=== PATIENT | male | born 1940 | race Caucasian/White ===

== ENCOUNTER → 2016-10-04 | Outpatient (CLI) | payer MEDICARE, BC ==
[~2016-10-04] MED LIST: EXCETAB2 PO; GABA100C4 PO; GABA300C5 PO; HYDR-3580 PO; HYDR10TA65 PO; LYRI50CA; MULT1TAB85 PO; POLY10O LEFT EYE; PROZ20CA11 PO; TRAZ50TA12 PO
[2016-10-04 12:56] LABS: BLOOD, URINE NEG (NEG); GLUCOSE,URINE NEG (NEG); KETONE, URINE NEG (NEG); MUCUS URINE MOD /lpf (OCC); NITRITE,URINE NEG (NEG); SQUAMOUS EPITHELIAL CELL URINE <1 /hpf (0-5); URINE COLOR YELLOW (YELLW/STRAW)
[2016-10-04 12:57] LABS: AUTOMATED NEUTROPHIL # 6.1 TH/MM3 (1.8-7.7); BASOPHIL # 0.1 TH/MM3 (0-0.2); BASOPHIL % 0.9 % (0.0-2.0); EOSINOPHIL # 0.3 TH/MM3 (0-0.4); EOSINOPHIL % 3.5 % (0.0-4.0); HEMATOCRIT 35.4 % (39.0-51.0); LYMPH % 9.6 % (9.0-44.0); LYMPHOCYTE # 0.8 TH/MM3 (1.0-4.8); MEAN CELL VOLUME 73.9 FL (80.0-100.0); MEAN CORPUSCULAR HEMOGLOBIN 24.3 PG (27.0-34.0); MEAN CORPUSCULAR HGB CONC 32.9 % (32.0-36.0); MONO % 11.9 % (0.0-8.0); NEUT % 74.1 % (16.0-70.0); PLATELET COUNT 138 TH/MM3 (150-450); RED BLOOD COUNT 4.78 MIL/MM3 (4.50-5.90); RED CELL DISTRIBUTION WIDTH 16.4 % (11.6-17.2); WHITE BLOOD COUNT 8.3 TH/MM3 (4.0-11.0)
[2016-10-04 13:00] LABS: HEMO FLAGS AUTO DIFF
[2016-10-04 13:38] LABS: ANION GAP 6 MEQ/L (5-15); AST (GOT) 15 U/L (15-37); BICARBONATE 28.9 MEQ/L (21.0-32.0); BLOOD UREA NITROGEN 13 MG/DL (7-18); CHLORIDE 105 MEQ/L (98-107); GLOMERULAR FILTRATION RATE 73 ML/MIN (>89); POTASSIUM 3.9 MEQ/L (3.5-5.1); SODIUM (NA) 140 MEQ/L (136-145)
[2016-10-04 13:49] LABS: ALKALINE PHOSPHATASE 57 U/L (45-117); ALT (GPT) 14 U/L (12-78); TOTAL BILIRUBIN ADULT 0.6 MG/DL (0.2-1.0)
[2016-10-04 14:15] LABS: OVALOCYTES 1+ (NORMAL)
[2016-10-04 14:16] LABS: SCAN/DIFF AUTO DIFF CONFIRMED
== END ==
LOC: PLAB 10:48
PROVIDERS: ATTEND Internal Medicine Endocrinology, Diabetes & Metabolism
DX: E27.40 Unspecified adrenocortical insufficiency (principal); E78.5 Hyperlipidemia, unspecified
CPT/HCPCS: 36415; 80053; 81001; 84443; 85025

== ENCOUNTER → 2016-10-11 | Outpatient (CLI) | payer MEDICARE, BC ==
[2016-10-11 16:04] LABS: AUTOMATED NEUTROPHIL # 5.1 TH/MM3 (1.8-7.7); BASOPHIL % 0.5 % (0.0-2.0); EOSINOPHIL # 0.1 TH/MM3 (0-0.4); LYMPH % 18.9 % (9.0-44.0); LYMPHOCYTE # 1.3 TH/MM3 (1.0-4.8); MEAN CELL VOLUME 73.9 FL (80.0-100.0); MEAN CORPUSCULAR HEMOGLOBIN 24.2 PG (27.0-34.0); MEAN CORPUSCULAR HGB CONC 32.8 % (32.0-36.0); NEUT % 72.6 % (16.0-70.0); PLATELET COUNT 159 TH/MM3 (150-450); RED BLOOD COUNT 4.87 MIL/MM3 (4.50-5.90); RED CELL DISTRIBUTION WIDTH 16.8 % (11.6-17.2)
[2016-10-11 16:06] LABS: HEMO FLAGS AUTO DIFF
[2016-10-11 16:46] LABS: FERRITIN 21 NG/ML (26-388); TRANSFERRIN IRON PROFILE 307 MG/DL (200-360)
[2016-10-11 17:37] LABS: PLATELET ESTIMATE SMEAR NORMAL (NORMAL); PLATELET MORPHOLOGY NORMAL (NORMAL); SCAN/DIFF AUTO DIFF CONFIRMED
== END ==
LOC: PLAB 13:35
DX: D64.9 Anemia, unspecified (principal)
CPT/HCPCS: 36415; 82607; 82728; 82746; 83540; 83550; 85025

== ENCOUNTER → 2016-10-27 | Outpatient (CLI) | payer MEDICARE, BC ==
[2016-10-27 14:12] LABS: FERRITIN 13 NG/ML (26-388); TRANSFERRIN IRON PROFILE 313 MG/DL (200-360)
== END ==
LOC: PLAB 09:35
PROVIDERS: ATTEND Internal Medicine Gastroenterology
DX: D64.9 Anemia, unspecified (principal); Z80.0 Family history of malignant neoplasm of digestive organs
CPT/HCPCS: 36415; 82607; 82728; 83540; 83550

== ENCOUNTER 2016-11-13 12:48 | Emergency (ER) | payer MEDICARE, BC ==
[~2016-11-13] VITALS: Ht 177.8 cm; Wt 89.1 kg
[~2016-11-13 12:48] MED LIST changes: -GABA100C4 PO; -GABA300C5 PO; -LYRI50CA; -POLY10O LEFT EYE
[2016-11-13 12:51] VITALS: BP 118/80; PULSE 91; RESP 15; TEMP 97.7; O2SAT 97
[2016-11-13] MEDS ORDERED: POLY10O LEFT EYE (13:06)
--- NOTE | 2016-11-13 13:08 | PD ---
HPI Chief Complaint: Eye Problems/Injury Time Seen by Provider: 12:58 Travel History International Travel<30 days: No Contact w/Intl Traveler<30days: No Traveled to known affect area: No History of Present Illness HPI 76-year-old male presents for evaluation of bilateral eye irritation, matting, green drainage. Symptoms started last night after he returned home from some motorcycle races. He denies any foreign body sensation or pain in the eyes. He denies any blurred vision. He does not that for 3 days he's had a slight cough and some nasal congestion and 2 days ago he flew here from [place]. He does not wear contacts. He has no other complaints at this time. 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 SATINDER) Cholecystectomy: Yes Joint Replacement: Yes (RIGHT KNEE: 2012) Pacemaker: No Tonsillectomy: Yes Other Surgery: Yes ("GROIN SURGERY TO REMOVE NERVE") Social History Alcohol Use: No Tobacco Use: No Substance Use: No Allergies-Medications (Allergen,Severity, Reaction): Coded Allergies: No Known Allergies (Unverified , 11/13/16) Reported Meds & Prescriptions Reported Meds & Active Scripts Active Polytrim Opth Drops (Polymyxin/Trimethoprim Sulfate) 10,000-0.1 Unit/Ml-% Soln 1 Drop LEFT EYE Q6HR 10 Days Reported Multivitamin Men (Multiple Vitamins W/ Minerals) 1 Tab Tab 1 Tab PO DAILY Hydrocortisone 10 Mg Tab 20 Mg PO BID Take with food to decrease GI upset Hydrocodone-Acetaminophen 7.5-325 mg Tab 1 Tab PO Q4H PRN Prozac (Fluoxetine HCl) 20 Mg Cap 20 Mg PO DAILY Trazodone (Trazodone HCl) 50 Mg Tab 25 Mg PO HS Review of Systems Eyes: Positive: Drainage, Redness, No: Blurred Vision, Foreign Body Sensation , Pain HENT: Positive: Congestion Respiratory: Positive: Cough Physical Exam Narrative GENERAL: Well-developed well-nourished male in no acute distress SKIN: Warm and dry. HEAD: Atraumatic. Normocephalic. EYES: Pupils equal and round reactive to light extraocular muscles are intact. Bilaterally there is conjunctival injection with some drainage matted in the eyelids. There is no proptosis. There is no obvious foreign body. There is no photophobia. ENT: No nasal bleeding or discharge. Mucous membranes pink and moist. NECK: Trachea midline. No JVD. CARDIOVASCULAR: Regular rate and rhythm. No murmur appreciated. RESPIRATORY: No accessory muscle use. Clear to auscultation. Breath sounds equal bilaterally. Data Data Last Documented VS Vital Signs Date Time Temp Pulse Resp B/P Pulse Ox O2 Delivery O2 Flow Rate FiO2 11/13/16 12:51 97.7 91 15 118/80 97 MDM Medical Decision Making Medical Screen Exam Complete: Yes Emergency Medical Condition: Yes Medical Record Reviewed: Yes Differential Diagnosis Conjunctivitisbacterial versus viral versus chemical versus other versus bilateral corneal abrasions versus bilateral corneal ulcerations versus bilateral acute glaucoma versus bilateral endophthalmitis versus bilateral iritis Narrative Course 76-year-old male presents with bilateral eye irritation, redness, green drainage and matting. Physical examination is consistent with bilateral conjunctivitis, likely bacterial versus viral. The patient will be treated with Polytrim ophthalmic solution. Diagnosis Primary Impression: Conjunctivitis Qualified Code: H10.33 - Acute conjunctivitis of both eyes, unspecified acute conjunctivitis type Additional Instructions: Medication as prescribed. Wash pillow and pillowcase. Wash hands frequently. Return for any emergent medical conditions. Med/Other Pt SpecificInfo: Prescription(s) given Scripts Polymyxin B-Trimethoprim Opth Drops (Polytrim Opth Drops)10,000-0.1 Unit/Ml-% Soln1 Drop LEFT EYE Q6HR 10 Days Ref 0 Prov:Magi Ospina MD 11/13/16 Disposition: 01 DISCHARGE HOME Condition: Stable Kojo Ayers Nov 13, 2016 13:08
[2016-11-29] MEDS ORDERED: LYRI50CA (14:48)
== END 2016-11-13 13:24 | disposition home or self-care (01) ==
LOC: PHEFT 12:48
DX: H10.9 Unspecified conjunctivitis (principal); K21.9 Gastro-esophageal reflux disease without esophagitis; Z87.442 Personal history of urinary calculi
CPT/HCPCS: 99282

== ENCOUNTER 2016-11-16 07:03 | Day surgery (SDC) | payer MEDICARE, BC ==
[~2016-11-16] VITALS: Ht 177.8 cm; Wt 88.6 kg
[~2016-11-16 07:03] MED LIST changes: -EXCETAB2 PO; +POLY10O LEFT EYE
[2016-11-16 07:34] VITALS: BP 139/92; PULSE 74; RESP 20; TEMP 97.5; O2SAT 98
[2016-11-16] MEDS ORDERED: GABA100C4 PO (08:00)
[2016-11-16 08:14] LABS: AUTOMATED NEUTROPHIL # 4.8 TH/MM3 (1.8-7.7); BASOPHIL # 0.1 TH/MM3 (0-0.2); BASOPHIL % 0.8 % (0.0-2.0); EOSINOPHIL # 0.2 TH/MM3 (0-0.4); EOSINOPHIL % 2.8 % (0.0-4.0); HEMATOCRIT 32.8 % (39.0-51.0); LYMPH % 15.1 % (9.0-44.0); MEAN CELL VOLUME 72.3 FL (80.0-100.0); MEAN CORPUSCULAR HEMOGLOBIN 24.1 PG (27.0-34.0); MEAN CORPUSCULAR HGB CONC 33.4 % (32.0-36.0); MONO % 11.8 % (0.0-8.0); NEUT % 69.5 % (16.0-70.0); PLATELET COUNT 171 TH/MM3 (150-450); RED BLOOD COUNT 4.53 MIL/MM3 (4.50-5.90); RED CELL DISTRIBUTION WIDTH 16.4 % (11.6-17.2); WHITE BLOOD COUNT 6.8 TH/MM3 (4.0-11.0)
[2016-11-16 08:16] LABS: HEMO FLAGS AUTO DIFF
[2016-11-16 08:25] LABS: APTT (PATIENT) 27.5 SEC (24.3-30.1); PROTHROMBIN TIME - PATIENT 10.6 SEC (9.8-11.6)
[2016-11-16] MEDS ORDERED: ceFAZolin 2 GM PREMIX 50 ML IV SCH (08:30)
[2016-11-16] MEDS ORDERED: SODIUM CHLOR 0.9% 1000 ML INJ 1,000 ML IV SCH (08:30)
[2016-11-16 08:34] LABS: BICARBONATE 27.4 MEQ/L (21.0-32.0); POTASSIUM 3.8 MEQ/L (3.5-5.1)
[2016-11-16 08:52] LABS: KERATOCYTES OCC (NORMAL); OVALOCYTES 1+ (NORMAL); PLATELET ESTIMATE SMEAR NORMAL (NORMAL); PLATELET MORPHOLOGY ENLARGED (NORMAL); SCAN/DIFF AUTO DIFF CONFIRMED
[2016-11-16] MEDS ORDERED: MIDAZOLAM HCL 2 MG/2 ML VIAL ONE (09:00)
[2016-11-16] MEDS ORDERED: ONDANSETRON HCL 4 MG/2 ML VIAL ONE (09:35)
[2016-11-16] MEDS ORDERED: IOHEXOL 300 MG/ML 50 ML BTL (for RAD DIAG) ONE (10:09)
[2016-11-16 10:30] VITALS: BP 125/74; PULSE 73; RESP 20; TEMP 97.6; O2SAT 95
[2016-11-16 11:00] VITALS: BP 130/85; PULSE 85; RESP 18; O2SAT 96
[2016-11-16 11:30] VITALS: BP 144/83; PULSE 84; RESP 16; O2SAT 95
--- NOTE | 2016-11-16 11:30 | PD.RAD ---
Post Procedure Progress Note Pre Procedure Diagnosis: (1) Chronic radicular pain of lower back Post Procedure Diagnosis: (1) Chronic radicular pain of lower back Procedure Date: Nov 16, 2016 Supervising Radiologist: Zeeshan Angel Proceduralist/Assist: RT Ricardo(R)() Anesthesia: Local, Conscious Sedation Plan of Activity Patient to Unit: [facility] Patient Condition: Good See PACS Report for procedural detail/treatment Spinal Procedure Discogram L2-L3, L3-L4, L4-L5, L5-S1 Zeeshan Angel MD Nov 16, 2016 11:30
[2016-11-16 12:00] VITALS: BP 130/77; PULSE 84; RESP 18; O2SAT 93
--- NOTE | 2016-11-16 13:13 | RADRPT ---
EXAM DATE/TIME: 11/16/2016 07:38 [facility] COMPARISON: CT LUMBAR SPINE W/O CONTRAST, November 16, 2016, 10:17. INDICATIONS : Patient with a history of degenerative disc disease and disc protrusions with mult ilevel disease. Requested levels include L3-4 and L5-S1, however by available imaging, L4-5 was also anatomically abnormal and transitional anatomy is present. MEDICAL HISTORY : Arthritis Anxiety Depression Pituitary tumor GERD Headaches Kidney stones SURGICAL HISTORY : Lap mayi Cholecystectomy Tonsillectomy ENCOUNTER: Initial ACUITY: >1 year PAIN SCORE: /10 LOCATION: Lower back FLUORO TIME: 15.4 minutes IMAGE SERIES: 4 CONTRAST: 1.5 cc Omnipaque (iohexol) 300 LEVEL(S): L2-L3 PAIN RESPONSE: Similarly reproduced patient's pain MEDICATION(S): 1.) 75 mcg fentanyl (Sublimaze) IV 2.) 4 mg ondansetron (Zofran) IV Prophylactic antibiotics were administered with appropriate pre-procedure timing. PROCEDURE : 1. Fluoroscopically-guided discogram. 2. Conscious sedation with continuous EKG and oximetry monitoring. TECHNIQUE: The patient was placed prone on the fluoroscopy table. The low back was prepped in vidhya rile fashion. Full sterile technique was used, including cap, mask, sterile gloves and gown and a [employer] sterile sheet. Hand hygiene and 2% chlorhexidine and/or betadine/alcohol prep was utilized per pro tocol for cutaneous antisepsis. The skin and subcutaneous tissues were infiltrated with lidocaine meli ution. Using a right posterior paramedian approach, a 22 gauge spinal needle was introduced to the L2-3 inte rvertebral disc. Diskography injection was performed and the patient's symptoms recorded. Digital kaylynn ging was then accomplished in multiple projections. The patient tolerated the procedure well and was then taken to CT for cross sectional evaluation. FINDINGS: The patient reported mild exacerbation of back pain similar to his usual pain upon injection at this level. There was no associated radicular symptomatology. The images reveal exit of injected contrast through a right posterior paracentral to posterior latera l annular tear. CONCLUSION: Right paracentral to posterior lateral annular tear at L2-3. Clinically mildly positi ve for back pain reproduction. Please see report of CT examination lumbar spine same date for additi onal details. Zeeshan Angel MD on November 16, 2016 at 12:53 Board Certified Radiologist. This report was verified electronically.
--- NOTE | 2016-11-16 13:24 | RADRPT ---
EXAM DATE/TIME: 11/16/2016 07:38 [facility] COMPARISON: CT LUMBAR SPINE W/O CONTRAST, November 16, 2016, 10:17. INDICATIONS : Patient with a history of degenerative disc disease. MEDICAL HISTORY : Arthritis Anxiety Depression Pituitary tumor GERD Headaches Kidney stones SURGICAL HISTORY : Lap mayi Cholecystectomy Tonsillectomy ENCOUNTER: Initial ACUITY: >1 year PAIN SCORE: 1/10 LOCATION: Lower back FLUORO TIME: 15.4 minutes IMAGE SERIES: 4 CONTRAST: 2.5 cc Omnipaque (iohexol) 300 LEVEL(S): L3-L4 PAIN RESPONSE: Similarly reproduced patient's pain MEDICATION(S): 1.) 75 mcg fentanyl (Sublimaze) IV 2.) 4 mg ondansetron (Zofran) IV Prophylactic antibiotics were administered with appropriate pre-procedure timing. PROCEDURE : 1. Fluoroscopically-guided discogram. 2. Conscious sedation with continuous EKG and oximetry monitoring. TECHNIQUE: The patient was placed prone on the fluoroscopy table. The low back was prepped in vidhya rile fashion. Full sterile technique was used, including cap, mask, sterile gloves and gown and a [employer] sterile sheet. Hand hygiene and 2% chlorhexidine and/or betadine/alcohol prep was utilized per pro tocol for cutaneous antisepsis. The skin and subcutaneous tissues were infiltrated with lidocaine meli ution. Using a right posterior paramedian approach, a 22 gauge spinal needle was introduced to the L3-4 inte rvertebral disc. Diskography injection was performed and the patient's symptoms recorded. Digital kaylynn ging was then accomplished in multiple projections. The patient tolerated the procedure well and was then taken to CT for cross sectional evaluation. FINDINGS: The disc is significantly degenerated with moderate loss of height. Injected contrast exits through b road annular tear and fissuring in a left paracentral and left lateral location. No significant dorsa l contrast extension is appreciated. Injection resulted in mild exacerbation of back pain similar to the patient's usual symptoms. CONCLUSION: Broad annular tear and fissuring, left paracentral and left lateral. Clinically mildl y positive for symptom reproduction. Please see report of CT examination lumbar spine same date for a dditional details. Zeeshan Angel MD on November 16, 2016 at 13:13 Board Certified Radiologist. This report was verified electronically.
--- NOTE | 2016-11-16 13:29 | RADRPT ---
EXAM DATE/TIME: 11/16/2016 07:38 [facility] COMPARISON: CT LUMBAR SPINE W/O CONTRAST, November 16, 2016, 10:17. INDICATIONS : Patient with a history of degenerative disc disease. MEDICAL HISTORY : Arthritis Anxiety Depression Pituitary tumor GERD Headaches Kidney stones SURGICAL HISTORY : Lap mayi Cholecystectomy Tonsillectomy ENCOUNTER: Initial ACUITY: >1 year PAIN SCORE: 1/10 LOCATION: Lower back FLUORO TIME: 15.4 minutes IMAGE SERIES: 4 CONTRAST: 1.5 cc Omnipaque (iohexol) 300 LEVEL(S): L4-L5 PAIN RESPONSE: Similarly reproduced patient's pain MEDICATION(S): 1.) 75 mcg fentanyl (Sublimaze) IV 2.) 4 mg ondansetron (Zofran) IV Prophylactic antibiotics were administered with appropriate pre-procedure timing. PROCEDURE : 1. Fluoroscopically-guided discogram. 2. Conscious sedation with continuous EKG and oximetry monitoring. TECHNIQUE: The patient was placed prone on the fluoroscopy table. The low back was prepped in vidhya rile fashion. Full sterile technique was used, including cap, mask, sterile gloves and gown and a [employer] sterile sheet. Hand hygiene and 2% chlorhexidine and/or betadine/alcohol prep was utilized per pro tocol for cutaneous antisepsis. The skin and subcutaneous tissues were infiltrated with lidocaine meli ution. Using a right posterior paramedian approach, a 22 gauge spinal needle was introduced to the L4-5 inte rvertebral discs. Diskography injection was performed and the patient's symptoms recorded. Digital im aging was then accomplished in multiple projections. The patient tolerated the procedure well and was then taken to CT for cross sectional evaluation. FINDINGS: There is exit of injected contrast through broad dorsal annular tears and some minimal leakage of con trast along the needle tract. Injection did not result in any symptom exacerbation. CONCLUSION: Broad dorsal annular tears. Injection clinically negative for back pain reproduction. Please see report of CT examination lumbar spine same date for additional details. Zeeshan Angel MD on November 16, 2016 at 13:23 Board Certified Radiologist. This report was verified electronically.
--- NOTE | 2016-11-16 13:33 | RADRPT ---
EXAM DATE/TIME: 11/16/2016 07:38 [facility] COMPARISON: CT LUMBAR SPINE W/O CONTRAST, November 16, 2016, 10:17. INDICATIONS : Patient with a history of degenerative disc disease. MEDICAL HISTORY : Arthritis Anxiety Depression Pituitary tumor GERD Headaches Kidney stones SURGICAL HISTORY : Lap mayi Cholecystectomy Tonsillectomy ENCOUNTER: Initial ACUITY: >1 year PAIN SCORE: 1/10 LOCATION: Lower back FLUORO TIME: 15.4 minutes IMAGE SERIES: 4 CONTRAST: 1.5 cc Omnipaque (iohexol) 300 LEVEL(S): L5-S1 PAIN RESPONSE: No pain produced MEDICATION(S): 1.) 75 mcg fentanyl (Sublimaze) IV 2.) 4 mg ondansetron (Zofran) IV Prophylactic antibiotics were administered with appropriate pre-procedure timing. PROCEDURE : 1. Fluoroscopically-guided discogram. 2. Conscious sedation with continuous EKG and oximetry monitoring. TECHNIQUE: The patient was placed prone on the fluoroscopy table. The low back was prepped in vidhya rile fashion. Full sterile technique was used, including cap, mask, sterile gloves and gown and a [employer] sterile sheet. Hand hygiene and 2% chlorhexidine and/or betadine/alcohol prep was utilized per pro tocol for cutaneous antisepsis. The skin and subcutaneous tissues were infiltrated with lidocaine meli ution. Using a left posterior paramedian approach, a 22 gauge spinal needle was introduced to the L5-S1 inte rvertebral discs. Diskography injection was performed and the patient's symptoms recorded. Digital im aging was then accomplished in multiple projections. The patient tolerated the procedure well and was then taken to CT for cross sectional evaluation. FINDINGS: The disc is severely degenerated with significant loss of disc height. There is extension of contrast to the margin of the annulus circumferentially through multifocal fissuring and tearing. Injection d id not exacerbate or reproduce any of the patient's characteristic back pain symptoms. CONCLUSION: Severe disc degeneration with diffuse annular fissuring. Clinically negative for pain reproduction. Please see report of CT examination lumbar spine same date for additional details. Zeeshan Angel MD on November 16, 2016 at 13:28 Board Certified Radiologist. This report was verified electronically.
--- NOTE | 2016-11-17 09:35 | RADRPT ---
EXAM DATE/TIME: 11/16/2016 10:17 [facility] COMPARISON: No previous studies available for comparison. INDICATIONS : Back pain , post discogram. RADIATION DOSE: 40.09 CTDIvol (mGy) MEDICAL HISTORY : Dystonia SURGICAL HISTORY : Lumbar injection ENCOUNTER: Initial ACUITY: 1 day PAIN SCALE: 5/10 LOCATION: spine TECHNIQUE: Contrast injection had been performed into the intervertebral discs at the L2-3, L3-4, L4-5 and L5-S1 levels under fluoroscopic guidance prior to scanning. Volumetric scanning of the lumbar spine was pe rformed. Multiplanar reconstructions in the sagittal, coronal and oblique axial planes were performe d. Using automated exposure control and adjustment of the mA and/or kV according to patient size, ra diation dose was kept as low as reasonably achievable to obtain optimal diagnostic quality images. FINDINGS: The alignment is normal. The vertebra are intact throughout. No fracture or destructive change. Findings at specific interspaces: L2-3: Slight annular disc bulge. Annular tear at the 7:00 position of the intervertebral disc with contrast extension to the margin of the annulus at this location. No definite associated anatomic compromise of canal or foramina. L3-4: Severe disc degeneration with vacuum disc phenomenon. Diffuse annular fissuring with extension of con trast to the margin of the annulus circumferentially, moderately eccentric to the left. Mild broad do rsal protrusion without definite significant anatomic compromise. Evidence of previous left laminotom y. L4-5: Dorsal annular tears centrally and in the bilateral paracentral location with extension of contrast t o the margin of the annulus in these locations, fairly symmetric. Minimal associated broad dorsal dis c protrusion with slight flattening of the thecal sac. The neuroforamina appear satisfactory. L5-S1: Severe disc degeneration with loss of height. Annular bulge with vacuum disc phenomena. Diffuse circu mferential annular fissuring with extension of contrast in the margin of the annulus circumferentiall y. No significant associated compromise of the canal or foramina. CONCLUSION: Focal right paracentral annular tear at the L2-3 level and diffuse disc abnormalities at L3-4, L4-5 a nd L5-S1 levels. See above discussion. Please also see report of discogram injection procedure for cl inical details. Zeeshan Angel MD on November 17, 2016 at 9:23 Board Certified Radiologist. This report was verified electronically.
[2016-11-29] MEDS ORDERED: LYRI50CA (14:48)
== END 2016-11-16 12:30 | disposition home or self-care (01) ==
LOC: HROP 07:03 → HRIP 07:04 → HROP 12:30
PROVIDERS: ATTEND Neurological Surgery
DX: M51.36 Other intervertebral disc degeneration, lumbar region (principal); F32.9 Major depressive disorder, single episode, unspecified; F41.9 Anxiety disorder, unspecified; K21.9 Gastro-esophageal reflux disease without esophagitis; Z87.442 Personal history of urinary calculi
CPT/HCPCS: 62290; 72131; 72295; 80048; 85025; 85610; 85730; 99152; 99153; J0690; J2250; J2405; J3010; Q9967

== ENCOUNTER → 2016-11-18 | Outpatient (CLI) | payer MEDICARE, BC ==
[~2016-11-18] MED LIST changes: +GABA100C4 PO; +GABA300C5 PO; +LYRI50CA
== END ==
LOC: PLAB 10:54
PROVIDERS: ATTEND Internal Medicine Gastroenterology
DX: D50.9 Iron deficiency anemia, unspecified (principal)
CPT/HCPCS: 36415; 82784; 83516; 86255

== ENCOUNTER 2016-12-11 02:57 | Emergency (ER) | payer MEDICARE, BC ==
[~2016-12-11] VITALS: Ht 177.8 cm; Wt 89.2 kg
[~2016-12-11 02:57] MED LIST changes: -GABA100C4 PO; -GABA300C5 PO
[2016-12-11 03:07] VITALS: BP 138/86; PULSE 78; RESP 18; TEMP 97.5; O2SAT 98
[2016-12-11 03:52] LABS: BLOOD, URINE NEG (NEG); GLUCOSE,URINE NEG (NEG); KETONE, URINE NEG (NEG); NITRITE,URINE NEG (NEG); PH, URINE 5.5 (5.0-8.5)
[2016-12-11 04:03] LABS: RBC, URINE 0-2 /hpf (0-3); SQUAMOUS EPITHELIAL CELL URINE 0-5 /hpf (0-5); URINE COLOR STRAW (YELLW/STRAW); WBC, URINE 0-2 /hpf (0-5)
[2016-12-11 04:04] LABS: COMMENT (UR) CULT NOT INDICATED; CULTURE IF INDICATED CULT NOT INDICATED
== END 2016-12-11 04:03 | disposition left against medical advice (07) ==
LOC: PHED 02:57
DX: R10.30 Lower abdominal pain, unspecified (principal); Z53.21 Procedure and treatment not carried out due to patient leaving prior to being seen by health care provider
CPT/HCPCS: 81001; 99281

== ENCOUNTER → 2016-12-16 | Outpatient (CLI) | payer MEDICARE, BC ==
[~2016-12-16] MED LIST changes: +GABA300C5 PO
[2016-12-16 16:26] LABS: FERRITIN 14 NG/ML (26-388); TRANSFERRIN IRON PROFILE 337 MG/DL (200-360)
[2016-12-16 16:35] LABS: AUTOMATED NEUTROPHIL # 14.2 TH/MM3 (1.8-7.7); BASOPHIL % 0.2 % (0.0-2.0); HEMATOCRIT 36.9 % (39.0-51.0); LYMPH % 3.9 % (9.0-44.0); LYMPHOCYTE # 0.6 TH/MM3 (1.0-4.8); MEAN CELL VOLUME 75.4 FL (80.0-100.0); MEAN CORPUSCULAR HEMOGLOBIN 23.4 PG (27.0-34.0); MONO % 9.1 % (0.0-8.0); NEUT % 86.8 % (16.0-70.0); PLATELET COUNT 159 TH/MM3 (150-450); WHITE BLOOD COUNT 16.4 TH/MM3 (4.0-11.0)
[2016-12-16 17:04] LABS: HEMO FLAGS AUTO DIFF
[2016-12-16 18:28] LABS: OVALOCYTES 1+ (NORMAL); PLATELET ESTIMATE SMEAR NORMAL (NORMAL); PLATELET MORPHOLOGY NORMAL (NORMAL); SCAN/DIFF AUTO DIFF CONFIRMED
== END ==
LOC: PLAB 12:15
PROVIDERS: ATTEND Internal Medicine Gastroenterology
DX: D50.9 Iron deficiency anemia, unspecified (principal)
CPT/HCPCS: 36415; 82728; 83540; 83550; 85025

== ENCOUNTER 2016-12-22 11:16 | Emergency (ER) | payer MEDICARE, BC ==
[~2016-12-22] VITALS: Ht 182.9 cm; Wt 87.0 kg
[~2016-12-22 11:16] MED LIST changes: -GABA300C5 PO
[2016-12-22 11:24] VITALS: BP 115/81; PULSE 83; RESP 18; TEMP 98.3; O2SAT 96
--- NOTE | 2016-12-22 11:46 | PD ---
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 Patient has been evaluated by neurosurgery, pain management, the [facility], [facility]. He has a left orchiectomy. Patient takes Lortab 10 mg for his pain, he has been on this for several years. He states his pain is currently not relieved with his normal pain medication and is requesting a shot. Patient states he was here on and was given an injection which relieved his pain. He denies any new injury, trauma, dysuria. His pain is consistent with his normal pain, he has no new symptoms. He is followed by Dr. Chun, pain management who gave him local injections last week and attempt to alleviate pain, but this did not work. He took pain medication approximately 2 hours prior to arrival. He further denies any chest pain, shortness of breath, abdominal pain. 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 SATINDER) Cholecystectomy: Yes Joint Replacement: Yes (RIGHT KNEE: 2011) Neurologic Surgery: Yes Pacemaker: No Tonsillectomy: Yes Other Surgery: Yes ("GROIN SURGERY TO REMOVE NERVE", LUMBAR BACK SURG 2016) Social History Alcohol Use: No Tobacco Use: No Substance Use: No Allergies-Medications (Allergen,Severity, Reaction): Coded Allergies: No Known Allergies (Unverified , 12/22/16) Reported Meds & Prescriptions Reported Meds & Active Scripts Active Reported Gabapentin 300 Mg Cap 300 Mg PO TID Multivitamin Men (Multiple Vitamins W/ Minerals) 1 Tab Tab 1 Tab PO DAILY Hydrocortisone 10 Mg Tab 20 Mg PO BID Take with food to decrease GI upset Hydrocodone-Acetaminophen 7.5-325 mg Tab 1 Tab PO Q4H PRN Prozac (Fluoxetine HCl) 20 Mg Cap 20 Mg PO DAILY Trazodone (Trazodone HCl) 50 Mg Tab 25 Mg PO HS Review of Systems Except as stated in HPI: all other systems reviewed are Neg Musculoskeletal: Positive: Pain (groin) Skin: Positive Change in Pigmentation Physical Exam Narrative GENERAL: Well-nourished, well-developed patient. SKIN: Focused skin assessment warm/dry. Left scrotum has areas of bruising, no edema, no hematoma noted. HEAD: Normocephalic. EYES: No scleral icterus. No injection or drainage. NECK: Supple, trachea midline. No JVD or lymphadenopathy. CARDIOVASCULAR: Regular rate and rhythm without murmurs, gallops, or rubs. RESPIRATORY: Breath sounds equal bilaterally. No accessory muscle use. GASTROINTESTINAL: Abdomen soft, non-tender, nondistended. MUSCULOSKELETAL: No cyanosis, or edema. Tenderness to palpation in left groin. No swelling noted. BACK: Nontender without obvious deformity. No CVA tenderness. Data Data Last Documented VS Vital Signs Date Time Temp Pulse Resp B/P Pulse Ox O2 Delivery O2 Flow Rate FiO2 12/22/16 11:24 98.3 83 18 115/81 96 Orders Ondansetron Odt (Zofran Odt) (12/22/16 12:00) Hydromorphone Pf Inj (Dilaudid Pf Inj) (12/22/16 12:00) [facility] Medical Decision Making Medical Screen Exam Complete: Yes Emergency Medical Condition: Yes Medical Record Reviewed: Yes Interpretation(s) Vital Signs Date Time Temp Pulse Resp B/P Pulse Ox O2 Delivery O2 Flow Rate FiO2 12/22/16 11:24 98.3 83 18 115/81 96 Differential Diagnosis Muscle strain versus sprain versus discogenic pain versus other Narrative Course Patient is a 76-year-old male presenting to the emergency department for evaluation of left groin pain which is chronic in nature and is currently unrelieved by his current narcotic pain medication. Patient is followed by neurosurgery, pain management. He has no new injury or trauma. The pain is consistent with pain that he's had in the past. Upon review of medical records he was given an injection of Dilaudid in July, he states that this helped his pain and he is requesting that again. Patient did not ask for the pain medication by name, he was unsure what he was given. He does not appear to be drug seeking. Discussed with my attending physician who ordered pain medication. Patient was encouraged to follow up with pain management and his primary doctor, neurosurgeon for ongoing evaluation and management of this chronic condition. He was encouraged to return to emergency department for any new or worsening symptoms. His will be driving him home. Patient verbalized understanding of instructions. Patient is stable for discharge. Diagnosis Primary Impression: Left groin pain Referrals: Neurosurgeon Pain Management Primary Care Physician Patient Instructions: Narcotic given in the ED, General Instructions Additional Instructions: Follow-up with your pain management, neurosurgeon, primary doctors as needed and as scheduled Do not drive or operate machinery, you have been given a narcotic pain medication in the emergency department which can and will impair your ability to drive Return to emergency department for any new or worsening symptoms Med/Other Pt SpecificInfo: No Change to Meds Disposition: 01 DISCHARGE HOME Condition: Stable Jennifer Lacey Dec 22, 2016 11:46
[2016-12-22] MEDS ORDERED: GABA300C5 PO (11:52)
[2016-12-22] MEDS ORDERED: ONDANSETRON ODT 4 MG TAB PO ONE (12:00)
[2016-12-22] MEDS ORDERED: HYDROmorphone HCL PF 1 MG/ML VIAL IM ONE (12:00)
== END 2016-12-22 12:40 | disposition home or self-care (01) ==
LOC: PHEFT 11:16
DX: R10.32 Left lower quadrant pain (principal); N50.812 Left testicular pain; G89.29 Other chronic pain; Z87.39 Personal history of other diseases of the musculoskeletal system and connective tissue; Z86.2 Personal history of diseases of the blood and blood-forming organs and certain disorders involving the immune mechanism; Z86.59 Personal history of other mental and behavioral disorders; Z87.19 Personal history of other diseases of the digestive system; Z87.448 Personal history of other diseases of urinary system; Z86.69 Personal history of other diseases of the nervous system and sense organs
CPT/HCPCS: 96372; 99283; J1170

== ENCOUNTER → 2016-12-27 | Outpatient (CLI) | payer MEDICARE, BC ==
[~2016-12-27] MED LIST changes: +GABA300C5 PO; -LYRI50CA; -POLY10O LEFT EYE
[2016-12-27 13:16] LABS: AUTOMATED NEUTROPHIL # 5.6 TH/MM3 (1.8-7.7); BASOPHIL % 0.4 % (0.0-2.0); EOSINOPHIL # 0.1 TH/MM3 (0-0.4); EOSINOPHIL % 0.7 % (0.0-4.0); HEMATOCRIT 41.1 % (39.0-51.0); LYMPH % 15.2 % (9.0-44.0); LYMPHOCYTE # 1.1 TH/MM3 (1.0-4.8); MEAN CELL VOLUME 75.4 FL (80.0-100.0); MEAN CORPUSCULAR HEMOGLOBIN 23.7 PG (27.0-34.0); MEAN CORPUSCULAR HGB CONC 31.5 % (32.0-36.0); MONO % 8.6 % (0.0-8.0); NEUT % 75.1 % (16.0-70.0); PLATELET COUNT 149 TH/MM3 (150-450); RED BLOOD COUNT 5.45 MIL/MM3 (4.50-5.90); RED CELL DISTRIBUTION WIDTH 19.5 % (11.6-17.2); WHITE BLOOD COUNT 7.5 TH/MM3 (4.0-11.0)
[2016-12-27 13:17] LABS: HEMO FLAGS AUTO DIFF
[2016-12-27 14:12] LABS: BURR CELLS 1+ (NORMAL); OVALOCYTES 1+ (NORMAL)
[2016-12-27 14:13] LABS: SCAN/DIFF AUTO DIFF CONFIRMED
== END ==
LOC: PLAB 10:11
DX: D64.9 Anemia, unspecified (principal)
CPT/HCPCS: 36415; 85025

== ENCOUNTER 2017-01-31 06:36 | Emergency (ER) | payer MEDICARE, BC ==
[~2017-01-31] VITALS: Ht 177.8 cm; Wt 87.4 kg
[2017-01-31 06:43] VITALS: BP 135/93; PULSE 67; RESP 14; TEMP 97.6; O2SAT 95
[2017-01-31] MEDS ORDERED: ONDANSETRON HCL 4 MG/2 ML VIAL IM ONE (07:45)
[2017-01-31] MEDS ORDERED: HYDROmorphone HCL PF 1 MG/ML VIAL SQ ONE (07:45)
--- NOTE | 2017-01-31 07:49 | PD ---
HPI Chief Complaint: Pain: Acute or Chronic Time Seen by Provider: 07:42 Travel History International Travel<30 days: No Contact w/Intl Traveler<30days: No Traveled to known affect area: No History of Present Illness HPI 76-year-old male with history of chronic left groin pain for which she has been seen by neurosurgery and pain management, status post left orchiectomy without significant relief, gets hydrocodone 10/325, but persists to the ER today because he states that he is not getting significant pain relief with that medication. He states that there have been different points in the past as well where he has a worsening in pain and had to come in for pain relief injections. He states that the last time was in November. He denies any new vomiting, fevers, or other symptoms. He states that this kept him up all night last night. He states the current pain is a 8 out of 10. He states ecchymosis is the same pain he has been having for years. 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 SATINDER) Cholecystectomy: Yes Joint Replacement: Yes (RIGHT KNEE: 2011) Neurologic Surgery: Yes Pacemaker: No Tonsillectomy: Yes Other Surgery: Yes ("GROIN SURGERY TO REMOVE NERVE", LUMBAR BACK SURG 2016) Social History Alcohol Use: No Tobacco Use: No Substance Use: No Allergies-Medications (Allergen,Severity, Reaction): Coded Allergies: No Known Allergies (Unverified , 01/31/17) Reported Meds & Prescriptions Reported Meds & Active Scripts Active Reported Gabapentin 300 Mg Cap 300 Mg PO TID Multivitamin Men (Multiple Vitamins W/ Minerals) 1 Tab Tab 1 Tab PO DAILY Hydrocortisone 10 Mg Tab 20 Mg PO BID Take with food to decrease GI upset Hydrocodone-Acetaminophen 7.5-325 mg Tab 1 Tab PO Q4H PRN Prozac (Fluoxetine HCl) 20 Mg Cap 20 Mg PO DAILY Trazodone (Trazodone HCl) 50 Mg Tab 25 Mg PO HS Review of Systems Except as stated in HPI: all other systems reviewed are Neg Physical Exam Narrative GENERAL: Well-nourished, well-developed elderly white male patient in no acute distress. SKIN: Focused skin assessment warm/dry. HEAD: Normocephalic. EYES: No scleral icterus. No injection or drainage. NECK: Supple, trachea midline. CARDIOVASCULAR: Regular rate and rhythm without murmurs, gallops, or rubs. RESPIRATORY: Breath sounds equal bilaterally. No accessory muscle use. GASTROINTESTINAL: Abdomen soft, non-tender, nondistended. GENITOURINARY: Circumcised. Right testicle descended, status post left orchiectomy, without evidence of rotation. No lesions or erythema. No urethral discharge. No groin mass or hernia. MUSCULOSKELETAL: No cyanosis, or edema. BACK: Nontender without obvious deformity. No CVA tenderness. Data Data Last Documented VS Vital Signs Date Time Temp Pulse Resp B/P Pulse Ox O2 Delivery O2 Flow Rate FiO2 01/31/17 06:43 97.6 67 14 135/93 95 MDM Medical Decision Making Medical Screen Exam Complete: Yes Emergency Medical Condition: Yes Medical Record Reviewed: Yes Differential Diagnosis Acute on chronic left groin pain Narrative Course I do not see any signs of acute pathology at this point. And it appears to be an acute on chronic pain episode. My plan would be to give him his injection and have him follow-up with pain management. Return for new issues as needed. The plan has been discussed with the patient he states understanding. Diagnosis Primary Impression: Left groin pain Disposition: 01 DISCHARGE HOME Condition: Stable Mellissa Gilmore MD Jan 31, 2017 07:49
== END 2017-01-31 08:26 | disposition home or self-care (01) ==
LOC: PHED 06:36
DX: R10.32 Left lower quadrant pain (principal); Z90.79 Acquired absence of other genital organ(s)
CPT/HCPCS: 96372; 99284; J1170; J2405

== ENCOUNTER 2017-02-25 22:28 | Emergency (ER) | payer MEDICARE, BC ==
[~2017-02-25] VITALS: Ht 177.8 cm; Wt 90.5 kg
[2017-02-25 22:31] VITALS: BP 149/104; PULSE 81; RESP 18; TEMP 97.8; O2SAT 96
[2017-02-25] MEDS ORDERED: HYDROmorphone HCL PF 1 MG/ML VIAL IM SCH (23:00)
[2017-02-25] MEDS ORDERED: ONDANSETRON HCL 4 MG/2 ML VIAL IM ONE (23:00)
--- NOTE | 2017-02-25 23:05 | PD ---
HPI . Left groin pain Chief Complaint: Pain: Acute or Chronic Time Seen by Provider: 22:41 Travel History International Travel<30 days: No Contact w/Intl Traveler<30days: No Traveled to known affect area: No History of Present Illness HPI Patient presents complaining with acute exacerbation of chronic left groin pain. The patient reports that he has had problems with his groin for 10 years or more. He has had a left orchiectomy in an attempt to control his pain. This was unsuccessful. The patient is followed by a pain management clinic. The patient has taken 3 hydrocodone tablets this evening without relief. He subsequently presents to us for treatment. The patient has been seen here before and is successfully given an injection of a narcotic pain medication. He states that that always works well for him. His pain is 7/10. There are no exacerbating or relieving factors. 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 SATINDER) Cholecystectomy: Yes Joint Replacement: Yes (RIGHT KNEE: 2011) Neurologic Surgery: Yes Pacemaker: No Tonsillectomy: Yes Other Surgery: Yes ("GROIN SURGERY TO REMOVE NERVE", LUMBAR BACK SURG 2015) Social History Alcohol Use: No Tobacco Use: No Substance Use: No Allergies-Medications (Allergen,Severity, Reaction): Coded Allergies: No Known Allergies (Unverified , 02/25/17) Reported Meds & Prescriptions Reported Meds & Active Scripts Active Reported Gabapentin 300 Mg Cap 300 Mg PO TID Hydrocortisone 10 Mg Tab 20 Mg PO BID Take with food to decrease GI upset Hydrocodone-Acetaminophen 7.5-325 mg Tab 1 Tab PO Q4H PRN Prozac (Fluoxetine HCl) 20 Mg Cap 20 Mg PO DAILY Trazodone (Trazodone HCl) 50 Mg Tab 25 Mg PO HS Review of Systems Except as stated in HPI: all other systems reviewed are Neg Physical Exam Narrative GENERAL: Awake and alert and in no acute distress. SKIN: Warm and dry. HEAD: Atraumatic. Normocephalic. EYES: Pupils equal and round. NECK: Trachea midline. CARDIOVASCULAR: Regular rate and rhythm. RESPIRATORY: No accessory muscle use. : Normal uncircumcised male. Status post left orchiectomy. There is no scrotal swelling or erythema. There is no palpable hernia. He is tender to palpation in the left inguinal ring. MUSCULOSKELETAL: No obvious deformities. No edema. NEUROLOGICAL: Awake and alert. No obvious cranial nerve deficits. Motor grossly within normal limits. Normal speech. PSYCHIATRIC: Appropriate mood and affect; insight and judgment normal. Data Data Last Documented VS Vital Signs Date Time Temp Pulse Resp B/P Pulse Ox O2 Delivery O2 Flow Rate FiO2 02/25/17 22:49 18 02/25/17 22:31 97.8 81 149/104 96 Orders Hydromorphone Pf Inj (Dilaudid Pf Inj) (02/25/17 23:00) Ondansetron Inj (Zofran Inj) (02/25/17 23:00) MDM Medical Decision Making Medical Screen Exam Complete: Yes Emergency Medical Condition: Yes Medical Record Reviewed: Yes (looks like he generally comes in about once a month with left groin pain. He was actually last seen here on 01/31. He is generally given Dilaudid, 1 mg IM. He is also generally given an anti-medic.) Differential Diagnosis My differential diagnosis of groin pain includes but is not limited to groin strain, lymphadenopathy, hernia, epididymitis, testicular torsion Narrative Course This patient presents complaining with acute exacerbation of chronic left groin pain. He has no concerning physical exam findings. I will give him Dilaudid 1 mg IM and Zofran 4 mg IM. He will then the discharged to home. Diagnosis Primary Impression: Left groin pain Patient Instructions: General Instructions Departure Forms: Tests/Procedures Disposition: DISCHARGE HOME Condition: Stable Swetha Baxter MD Feb 25, 2017 23:05
== END 2017-02-25 23:17 | disposition home or self-care (01) ==
LOC: PHED 22:28
DX: R10.30 Lower abdominal pain, unspecified (principal); K21.9 Gastro-esophageal reflux disease without esophagitis; E23.0 Hypopituitarism
CPT/HCPCS: 96372; 99284; J1170; J2405

== ENCOUNTER 2017-03-21 01:19 | Emergency (ER) | payer MEDICARE, BC ==
[~2017-03-21] VITALS: Ht 177.8 cm; Wt 88.5 kg
[~2017-03-21 01:19] MED LIST changes: -MULT1TAB85 PO
[2017-03-21 01:22] VITALS: BP 158/83; PULSE 76; RESP 16; TEMP 97.9; O2SAT 94
[2017-03-21 01:35] VITALS: BP 158/83; PULSE 76; RESP 18; TEMP 97.9; O2SAT 96
--- NOTE | 2017-03-21 02:11 | PD ---
HPI Chief Complaint: Pain: Acute or Chronic Time Seen by Provider: 02:07 Travel History International Travel<30 days: No Contact w/Intl Traveler<30days: No Traveled to known affect area: No History of Present Illness HPI 76 year-old male presents to the emergency department for complaint of chronic recurrent left groin pain. Patient's had symptoms for numerous years and states she's been to numerous specialists and cannot be identified as to source of pain. Patient is also had undergone left orchiectomy in the past and symptoms have persisted. Patient denies other concerns or complaints. Patient denies any recent injury or febrile illness. No associated abdominal pain or flank pain. No extremity numbness tingling or weakness or bladder or bowel dysfunction. Patient denies any recent long distance travel foreign travel protracted bedrest her surgical procedure. Patient denies any claudication symptoms. Patient is unable to identify exacerbating or alleviating factors. 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 SATINDER) Cholecystectomy: Yes Joint Replacement: Yes (RIGHT KNEE: 2011) Neurologic Surgery: Yes Pacemaker: No Tonsillectomy: Yes Other Surgery: Yes ("GROIN SURGERY TO REMOVE NERVE", LUMBAR BACK SURG 2016) Social History Alcohol Use: No Tobacco Use: No Substance Use: No Allergies-Medications (Allergen,Severity, Reaction): Coded Allergies: No Known Allergies (Unverified , 03/21/17) Reported Meds & Prescriptions Reported Meds & Active Scripts Active Reported Gabapentin 300 Mg Cap 300 Mg PO TID Hydrocortisone 10 Mg Tab 20 Mg PO BID Take with food to decrease GI upset Hydrocodone-Acetaminophen 7.5-325 mg Tab 1 Tab PO Q4H PRN Prozac (Fluoxetine HCl) 20 Mg Cap 20 Mg PO DAILY Trazodone (Trazodone HCl) 50 Mg Tab 25 Mg PO HS Review of Systems Except as stated in HPI: all other systems reviewed are Neg Physical Exam Narrative GENERAL: Well-developed well-nourished male in no acute distress no respiratory distress SKIN: Warm and dry. HEAD: Atraumatic. Normocephalic. EYES: Pupils equal and round. No scleral icterus. No injection or drainage. ENT: No nasal bleeding or discharge. Mucous membranes pink and moist. NECK: Trachea midline. No JVD. CARDIOVASCULAR: Regular rate and rhythm. RESPIRATORY: No accessory muscle use. Clear to auscultation. Breath sounds equal bilaterally. GASTROINTESTINAL: Abdomen soft, non-tender, nondistended. Hepatic and splenic margins not palpable. MUSCULOSKELETAL: Extremities without clubbing, cyanosis, or edema. No obvious deformities. NEUROLOGICAL: Awake and alert. No obvious cranial nerve deficits. Motor grossly within normal limits. Five out of 5 muscle strength in the arms and legs. Normal speech. PSYCHIATRIC: Appropriate mood and affect; insight and judgment normal. Data Data Last Documented VS Vital Signs Date Time Temp Pulse Resp B/P Pulse Ox O2 Delivery O2 Flow Rate FiO2 03/21/17 01:38 76 18 03/21/17 01:35 97.9 158/83 96 Orders Ketorolac Inj (Toradol Inj) (03/21/17 02:15) Hydromorphone Pf Inj (Dilaudid Pf Inj) (03/21/17 02:15) Ondansetron Odt (Zofran Odt) (03/21/17 02:15) [facility] Medical Decision Making Medical Screen Exam Complete: Yes Emergency Medical Condition: Yes Medical Record Reviewed: Yes Interpretation(s) GENERAL: Well-developed well-nourished male in no acute distress no respiratory distress SKIN: Warm and dry. HEAD: Normocephalic. EYES: No scleral icterus. No injection or drainage. NECK: Supple, trachea midline. No JVD or lymphadenopathy. CARDIOVASCULAR: Regular rate and rhythm without murmurs, gallops, or rubs. RESPIRATORY: Breath sounds equal bilaterally. No accessory muscle use. GASTROINTESTINAL: Abdomen soft, non-tender, nondistended. : Uncircumcised male with left orchiectomy no scrotal edema induration or erythema; no tenderness to direct palpation; active drainage; MUSCULOSKELETAL: No cyanosis, or edema. Bilateral radial and dorsalis pedis pulses 2+ to palpation. BACK: Nontender without obvious deformity. No CVA tenderness. Differential Diagnosis Groin pain, chronic pain syndrome, epididymitis, prostatitis, UTI, cystitis Narrative Course Patient given injection of Toradol 60 mg IM and offered Dilaudid 1 mg IM; patient desires of one-time dose of Toradol as he is followed by pain management and has typically received Dilaudid for pain Patient with good pain relief and symptom relief after Toradol 60 mg IM no administration of Dilaudid. Patient stable for outpatient management. Patient encouraged to follow-up with primary care provider Patient encouraged to return to the emergency department for any concerns or change condition Diagnosis Primary Impression: Chronic groin pain Qualified Code: R10.32 - Chronic groin pain, left Referrals: Pain Management call for appointment Primary Care Physician call for appointment Patient Instructions: Narcotic given in the ED, General Instructions Additional Instructions: Follow-up with primary care provider and your pain management doctor Return to the emergency for any concerns or change condition Continue current medications as presently prescribed Disposition: 01 DISCHARGE HOME Condition: Stable Heavenly Joseph MD Mar 21, 2017 02:11
[2017-03-21] MEDS ORDERED: KETOROLAC TROMETHAMINE 60 MG/2 ML (IM) VIAL IM ONE (02:15)
[2017-03-21] MEDS ORDERED: HYDROmorphone HCL PF 1 MG/ML VIAL IM ONE (02:15)
[2017-03-21] MEDS ORDERED: ONDANSETRON ODT 4 MG TAB PO ONE (02:15)
== END 2017-03-21 03:04 | disposition home or self-care (01) ==
LOC: PHED 01:19
DX: R10.32 Left lower quadrant pain (principal); G89.29 Other chronic pain; F31.9 Bipolar disorder, unspecified
CPT/HCPCS: 96372; 99284; J1885

== ENCOUNTER → 2017-03-28 | Outpatient (CLI) | payer MEDICARE, BC | LOC: PLAB 11:18 | DX: N40.1 Benign prostatic hyperplasia with lower urinary tract symptoms (principal) | CPT/HCPCS: 36415; 84153 ==

== ENCOUNTER → 2017-04-04 | Outpatient (CLI) | payer MEDICARE, BC ==
[~2017-04-04] MED LIST changes: +BACT800T5 PO; +DOXY100C PO
[2017-04-04 13:21] LABS: ANION GAP 8 MEQ/L (5-15); AST (GOT) 16 U/L (15-37); BICARBONATE 29.9 MEQ/L (21.0-32.0); BLOOD UREA NITROGEN 9 MG/DL (7-18); CHLORIDE 107 MEQ/L (98-107); GLOMERULAR FILTRATION RATE 98 ML/MIN (>89); GLUCOSE,FASTING 82 MG/DL (74-99); POTASSIUM 3.2 MEQ/L (3.5-5.1); SODIUM (NA) 145 MEQ/L (136-145)
[2017-04-04 13:22] LABS: ALT (GPT) 14 U/L (12-78)
[2017-04-04 13:24] LABS: ALKALINE PHOSPHATASE 53 U/L (45-117); TOTAL BILIRUBIN ADULT 0.7 MG/DL (0.2-1.0)
== END ==
LOC: PLAB 10:29
PROVIDERS: ATTEND Internal Medicine Endocrinology, Diabetes & Metabolism
DX: E27.40 Unspecified adrenocortical insufficiency (principal)
CPT/HCPCS: 36415; 80053

== ENCOUNTER → 2017-04-12 | Outpatient (CLI) | payer MEDICARE, BC ==
[~2017-04-12] MED LIST changes: +DILA4TAB2 PO
[2017-04-12 15:46] LABS: BICARBONATE 26.9 MEQ/L (21.0-32.0)
== END ==
LOC: PLAB 13:19
PROVIDERS: ATTEND Internal Medicine Endocrinology, Diabetes & Metabolism
DX: E27.40 Unspecified adrenocortical insufficiency (principal)
CPT/HCPCS: 36415; 80048

== ENCOUNTER 2017-04-16 00:18 | Emergency (ER) | payer MEDICARE, BC ==
[~2017-04-16] VITALS: Ht 177.8 cm; Wt 88.9 kg
[~2017-04-16 00:18] MED LIST changes: -BACT800T5 PO; -DILA4TAB2 PO; -DOXY100C PO
[2017-04-16 00:24] VITALS: BP 135/79; PULSE 79; RESP 16; TEMP 97.6; O2SAT 95
[2017-04-16 01:13] VITALS: BP 136/72; PULSE 76; RESP 18; TEMP 97.6; O2SAT 96
[2017-04-16] MEDS ORDERED: DOXY100C PO (02:38)
[2017-04-16] MEDS ORDERED: BACT800T5 PO (02:38)
--- NOTE | 2017-04-16 02:38 | PD ---
HPI Chief Complaint: Skin Problem Time Seen by Provider: 02:34 Travel History International Travel<30 days: No Contact w/Intl Traveler<30days: No Traveled to known affect area: No History of Present Illness HPI The patient is a 76-year-old male that 10 days ago had redundant skin removed from his groin area and the surgical site opened up tonight. He denies any fever. This was done in [place]. 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 SATINDER) Cholecystectomy: Yes Joint Replacement: Yes (RIGHT KNEE: 2011) Neurologic Surgery: Yes Pacemaker: No Tonsillectomy: Yes Other Surgery: Yes ("GROIN SURGERY TO REMOVE NERVE", LUMBAR BACK SURG 2016) Social History Alcohol Use: No Tobacco Use: No Substance Use: No Allergies-Medications (Allergen,Severity, Reaction): Coded Allergies: No Known Allergies (Unverified , 04/16/17) Reported Meds & Prescriptions Reported Meds & Active Scripts Active Reported Hydrocortisone 10 Mg Tab 20 Mg PO BID Take with food to decrease GI upset Hydrocodone-Acetaminophen 7.5-325 mg Tab 1 Tab PO Q4H PRN Prozac (Fluoxetine HCl) 20 Mg Cap 20 Mg PO DAILY Trazodone (Trazodone HCl) 50 Mg Tab 25 Mg PO HS Review of Systems Except as stated in HPI: all other systems reviewed are Neg Physical Exam Narrative GENERAL: Well-nourished, well-developed patient in slight apparent distress with his left groin dehiscence site area his vital signs are normal. SKIN: Focused skin assessment warm/dry. There is about 2 cm of wound dehiscence noted with slight amount of blood around the wound. No active bleeding is present. HEAD: Normocephalic. EYES: No scleral icterus. No injection or drainage. NECK: Supple, trachea midline. No JVD or lymphadenopathy. CARDIOVASCULAR: Regular rate and rhythm without murmurs, gallops, or rubs. RESPIRATORY: Breath sounds equal bilaterally. No accessory muscle use. GASTROINTESTINAL: Abdomen soft, non-tender, nondistended. MUSCULOSKELETAL: No cyanosis, or edema. BACK: Nontender without obvious deformity. No CVA tenderness. Data Data Last Documented VS Vital Signs Date Time Temp Pulse Resp B/P Pulse Ox O2 Delivery O2 Flow Rate FiO2 04/16/17 01:17 76 18 04/16/17 01:13 97.6 136/72 96 MDM Medical Decision Making Medical Screen Exam Complete: Yes Emergency Medical Condition: Yes Medical Record Reviewed: Yes Differential Diagnosis Wound dehiscence, cellulitis, abscess Narrative Course The patient has wound dehiscence. This is likely from infection. Plan: The patient will be given Septra and doxycycline and follow up with his doctor in [place] Tuesday. Diagnosis Primary Impression: Wound dehiscence Med/Other Pt SpecificInfo: Prescription(s) given Scripts Sulfamethoxazole-Trimethoprim (Bactrim DS)800-160 Mg Tab1 Tab PO BID #20 TAB Ref 0 Prov:Virgil Thibodeaux MD 04/16/17 Doxycycline Hyclate 100 Mg [id number] Mg PO BID #20 CAP Ref 0 Prov:Virgil Thibodeaux MD 04/16/17 Disposition: 01 DISCHARGE HOME Condition: Stable Virgil Thibodeaux MD Apr 16, 2017 02:38
[2017-04-16 02:39] VITALS: BP 136/74; PULSE 74; RESP 18; O2SAT 96
[2017-04-16] MEDS ORDERED: DOXYCYCLINE HYCLATE 100 MG CAP PO ONE (02:45)
[2017-04-16] MEDS ORDERED: SULFAMETHOXAZOLE-TRIMETHOPRIM DS 800-160 MG TAB PO ONE (02:45)
== END 2017-04-16 03:02 | disposition home or self-care (01) ==
LOC: PHED 00:18
DX: T81.31XA Disruption of external operation (surgical) wound, not elsewhere classified, initial encounter (principal)
CPT/HCPCS: 99284

== ENCOUNTER 2017-04-24 16:56 | Emergency (ER) | payer MEDICARE, BC ==
[~2017-04-24] VITALS: Ht 180.3 cm; Wt 87.0 kg
[~2017-04-24 16:56] MED LIST changes: +BACT800T5 PO; +DOXY100C PO; -GABA300C5 PO
[2017-04-24 17:00] VITALS: BP 138/79; PULSE 77; RESP 16; TEMP 97.8; O2SAT 97
[2017-04-24] MEDS ORDERED: HYDROmorphone HCL PF 2 MG/ML VIAL SQ ONE (17:15)
--- NOTE | 2017-04-24 17:24 | PD ---
HPI . Scrotal pain Chief Complaint: Skin Problem Time Seen by Provider: 17:10 Travel History International Travel<30 days: No Contact w/Intl Traveler<30days: No Traveled to known affect area: No History of Present Illness HPI This patient presents with left scrotal pain. We have seen this patient multiple times for the left scrotal pain. He had been previously treated for chronic left scrotal pain with an orchiectomy. He is treated outpatient with oxycodone, 10 mg. He most recently had resection of redundant skin from the left scrotum. That was done on approximately April 06. He came in here on April 16 with wound dehiscence. He was placed on Septra and doxycycline. He states that he has been having a visiting nurse, and pack his wound and that the wound seems to be doing well. He comes to us today stating that his pain is not controlled with oxycodone and with codeine. He rates the pain as 8-9/ 10. He believes that his pain today was exacerbated by the underwear that he wore at [employer]. In the past, we have seen him pretty regularly and had treated him with Dilaudid IM. 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 SATINDER) Cholecystectomy: Yes Joint Replacement: Yes (RIGHT KNEE: 2011) Neurologic Surgery: Yes Pacemaker: No Tonsillectomy: Yes Other Surgery: Yes ("GROIN SURGERY TO REMOVE NERVE", LUMBAR BACK SURG 2016) Social History Alcohol Use: No Tobacco Use: No Substance Use: No Allergies-Medications (Allergen,Severity, Reaction): Coded Allergies: No Known Allergies (Unverified , 04/24/17) Reported Meds & Prescriptions Reported Meds & Active Scripts Active Bactrim DS (Sulfamethoxazole-Trimethoprim) 800-160 Mg Tab 1 Tab PO BID Doxycycline Hyclate 100 Mg Cap 100 Mg PO BID Reported Hydrocortisone 10 Mg Tab 20 Mg PO BID Take with food to decrease GI upset Hydrocodone-Acetaminophen 7.5-325 mg Tab 1 Tab PO Q4H PRN Prozac (Fluoxetine HCl) 20 Mg Cap 20 Mg PO DAILY Trazodone (Trazodone HCl) 50 Mg Tab 25 Mg PO HS Review of Systems Except as stated in HPI: all other systems reviewed are Neg General / Constitutional: No: Fever Gastrointestinal: No: Nausea Genitourinary: Positive: Other (scrotal pain) Skin: Positive Other (open wound of the left scrotum) Physical Exam Narrative GENERAL: Awake and alert and in no acute distress. SKIN: Warm and dry. HEAD: Atraumatic. Normocephalic. EYES: Pupils equal and round. NECK: Trachea midline. CARDIOVASCULAR: Regular rate and rhythm. RESPIRATORY: No accessory muscle use. : Open wound on the left scrotum. There is an eschar covering the wound. I do not feel any fluctuance. The area does not seem to be particularly tender. The rest of the scrotum is not red or hot. MUSCULOSKELETAL: No obvious deformities. No edema. NEUROLOGICAL: Awake and alert. No obvious cranial nerve deficits. Motor grossly within normal limits. Normal speech. PSYCHIATRIC: Appropriate mood and affect; insight and judgment normal. Data Data Last Documented VS Vital Signs Date Time Temp Pulse Resp B/P (MAP) Pulse Ox O2 Delivery O2 Flow Rate FiO2 04/24/17 17:00 97.8 77 16 138/79 (98) 97 Orders Orders Hydromorphone Pf Inj (Dilaudid Pf Inj) (04/24/17 17:15) Hydromorphone Pf Inj (Dilaudid Pf Inj) (04/24/17 17:30) MDM Medical Decision Making Medical Screen Exam Complete: Yes Emergency Medical Condition: Yes Medical Record Reviewed: Yes (patient is seen here frequently with left scrotal pain.) Differential Diagnosis Differential diagnosis of scrotal pain includes but is not limited to epididymitis, testicular torsion, hernia, scrotal abscess, cellulitis Narrative Course This patient presents with left scrotal pain. He has an open wound in the left scrotum which is a known problem. It is being treated with antibiotics and wound care. The patient believes that this is doing better. He comes in to us today for pain control. I will give him a dose of Dilaudid IM and will discharge him with a 1 day supply of oral Dilaudid. Diagnosis Primary Impression: Left groin pain Patient Instructions: Narcotic given in the ED Med/Other Pt SpecificInfo: Prescription(s) given Scripts Hydromorphone (Dilaudid) 4 Mg Tab 4 MG PO Q4H Y for Pain Management, #6 TAB 0 Refills Prov: Swetha Baxter MD 04/24/17 Disposition: 01 DISCHARGE HOME Condition: Stable Swetha Baxter MD Apr 24, 2017 17:24
[2017-04-24] MEDS ORDERED: HYDROmorphone HCL PF 2 MG/ML VIAL IM ONE (17:30)
[2017-04-24] MEDS ORDERED: DILA4TAB2 PO (17:34)
== END 2017-04-24 18:13 | disposition home or self-care (01) ==
LOC: PHED 16:56
DX: R10.32 Left lower quadrant pain (principal); E23.0 Hypopituitarism; K21.9 Gastro-esophageal reflux disease without esophagitis; Z87.442 Personal history of urinary calculi
CPT/HCPCS: 96372; 99284; J1170

== ENCOUNTER 2017-08-29 14:02 | Emergency (ER) | payer MEDICARE, BC ==
[~2017-08-29] VITALS: Ht 177.8 cm; Wt 87.3 kg
[~2017-08-29 14:02] MED LIST changes: +DILA4TAB10 PO
[2017-08-29 14:05] VITALS: BP 133/84; PULSE 97; RESP 18; TEMP 97.6; O2SAT 96
[2017-08-29] MEDS ORDERED: HYDR-3583 PO (14:20)
[2017-08-29] MEDS ORDERED: HYDROmorphone HCL PF 2 MG/ML VIAL IM ONE (14:45)
--- NOTE | 2017-08-29 14:52 | PD ---
HPI Chief Complaint: Pain: Acute or Chronic Time Seen by Provider: 14:10 Travel History International Travel<30 days: No Contact w/Intl Traveler<30days: No Traveled to known affect area: No History of Present Illness HPI This patient complains of exacerbation of his chronic left groin pain. He's had this for many many years. He comes here frequently for Dilaudid injections. I reviewed the records. He was here 5 times last year for the same thing and each time got Dilaudid injection. This is his expectation. Not sure this is appropriate emergency room care but clearly a precedent has been set. 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 SATINDER) Cholecystectomy: Yes Joint Replacement: Yes (RIGHT KNEE: 2011) Neurologic Surgery: Yes Pacemaker: No Tonsillectomy: Yes Other Surgery: Yes ("GROIN SURGERY TO REMOVE NERVE", LUMBAR BACK SURG 2016) Social History Alcohol Use: No Tobacco Use: No Substance Use: No Allergies-Medications (Allergen,Severity, Reaction): Coded Allergies: No Known Allergies (Unverified Adverse Reaction, Unknown, 08/29/17) Reported Meds & Prescriptions Reported Meds & Active Scripts Active Reported Hydrocodone-Acetaminophen 10-325 mg Tab 1 Tab PO Q4H PRN Hydrocortisone 10 Mg Tab 20 Mg PO BID Take with food to decrease GI upset Hydrocodone-Acetaminophen 7.5-325 mg Tab 1 Tab PO Q4H PRN Prozac (Fluoxetine HCl) 20 Mg Cap 20 Mg PO DAILY Trazodone (Trazodone HCl) 50 Mg Tab 25 Mg PO HS Review of Systems General / Constitutional: No: Fever HENT: No: Headaches Cardiovascular: No: Chest Pain or Discomfort Respiratory: No: Cough Physical Exam Narrative GASTROINTESTINAL: Abdomen soft, non-tender, nondistended. Positive bowel sounds. No hepato-splenomegaly, or palpable masses. No guarding. SKIN: Focused skin assessment reveals no rash or ulcers. Skin is warm and dry. Palpation shows no induration or nodules. : Circumcised penis. One testicle remains in the scrotum. There is a healed left inguinal scar Data Data Last Documented VS Vital Signs Date Time Temp Pulse Resp B/P (MAP) Pulse Ox O2 Delivery O2 Flow Rate FiO2 08/29/17 14:05 97.6 97 18 133/84 (100) 96 Orders Orders Hydromorphone Pf Inj (Dilaudid Pf Inj) (08/29/17 14:45) [facility] Medical Decision Making Medical Screen Exam Complete: Yes Emergency Medical Condition: Yes Medical Record Reviewed: Yes Differential Diagnosis Chronic pain, narcotic seeking behavior, neuropathic pain Narrative Course I have reviewed the patient's electronic medical record. Reviewed last 5 visits as noted Is going to be challenging to be the chuck that says he can not have Dilaudid injection after the last 5 people have given it to him. As noted, there is clearly a precedent that has been set. I gave him injection intramuscularly No prescriptions written Encouraged to discuss this with his pain management physician and not use the ER for chronic pain flares Diagnosis Primary Impression: Chronic groin pain Qualified Codes: R10.32 - Left lower quadrant pain; G89.29 - Other chronic pain Additional Instructions: The patient was advised to follow up with their physician and return if they worsen. Med/Other Pt SpecificInfo: Other Disposition: 01 DISCHARGE HOME Condition: Stable Roberth Grewal MD Aug 29, 2017 14:52
[2017-08-29 15:11] VITALS: BP 130/82
[2017-08-29 15:12] VITALS: RESP 14
== END 2017-08-29 15:15 | disposition home or self-care (01) ==
LOC: PHED 14:02
DX: R10.32 Left lower quadrant pain (principal); G89.29 Other chronic pain
CPT/HCPCS: 96372; 99284; J1170

== ENCOUNTER 2017-08-29 22:00 | Emergency (ER) | payer MEDICARE, BC ==
[~2017-08-29] VITALS: Ht 177.8 cm; Wt 87.9 kg
[~2017-08-29 22:00] MED LIST changes: +HYDR-3583 PO
[2017-08-29 22:02] VITALS: BP 169/96; PULSE 95; RESP 18; TEMP 97.8; O2SAT 96
--- NOTE | 2017-08-29 22:31 | PD ---
HPI Chief Complaint: Complaint Time Seen by Provider: 22:20 Travel History International Travel<30 days: No Contact w/Intl Traveler<30days: No Traveled to known affect area: No History of Present Illness HPI The patient is a 77-year-old male who has had frequent visits for his testicular pain in the past and today is his second visit to the emergency department. He comes in expecting a shot of Dilaudid. He got a shot of Dilaudid earlier today. The pain has not been explained, perhaps chronic nerve pain in the area. It is in the area of the left testicle. 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 SATINDER) Cholecystectomy: Yes Joint Replacement: Yes (RIGHT KNEE: 2011) Neurologic Surgery: Yes Pacemaker: No Tonsillectomy: Yes Other Surgery: Yes ("GROIN SURGERY TO REMOVE NERVE", LUMBAR BACK SURG 2016) Social History Alcohol Use: No Tobacco Use: No Substance Use: No Allergies-Medications (Allergen,Severity, Reaction): Coded Allergies: No Known Allergies (Unverified Adverse Reaction, Unknown, 08/29/17) Reported Meds & Prescriptions Reported Meds & Active Scripts Active Reported Hydrocodone-Acetaminophen 10-325 mg Tab 1 Tab PO Q4H PRN Hydrocortisone 10 Mg Tab 20 Mg PO BID Take with food to decrease GI upset Hydrocodone-Acetaminophen 7.5-325 mg Tab 1 Tab PO Q4H PRN Prozac (Fluoxetine HCl) 20 Mg Cap 20 Mg PO DAILY Trazodone (Trazodone HCl) 50 Mg Tab 25 Mg PO HS Review of Systems Except as stated in HPI: all other systems reviewed are Neg Physical Exam Narrative GENERAL: The patient is alert, oriented 3 in minimal apparent distress with his left groin pain. His vital signs show blood pressure 169/96 but are otherwise normal. SKIN: Focused skin assessment warm/dry. HEAD: Atraumatic. Normocephalic. EYES: Pupils equal and round. No scleral icterus. No injection or drainage. ENT: No nasal bleeding or discharge. Mucous membranes pink and moist. NECK: Trachea midline. No JVD. CARDIOVASCULAR: Regular rate and rhythm. No murmur appreciated. RESPIRATORY: No accessory muscle use. Clear to auscultation. Breath sounds equal bilaterally. GASTROINTESTINAL: Abdomen soft, non-tender, nondistended. Hepatic and splenic margins not palpable. MUSCULOSKELETAL: No obvious deformities. No clubbing. No cyanosis. No edema. NEUROLOGICAL: Awake and alert. No obvious cranial nerve deficits. Motor grossly within normal limits. Normal speech. PSYCHIATRIC: Appropriate mood and affect; insight and judgment normal. GENITOURINARY: Circumcised. Testes descended bilaterally without evidence of rotation. No lesions or erythema. No urethral discharge. Data Data Last Documented VS Vital Signs Date Time Temp Pulse Resp B/P (MAP) Pulse Ox O2 Delivery O2 Flow Rate FiO2 08/29/17 22:02 97.8 95 18 169/96 (120) 96 MDM Medical Decision Making Medical Screen Exam Complete: Yes Emergency Medical Condition: Yes Medical Record Reviewed: Yes Differential Diagnosis Drug seeking behavior, chronic groin pain, Narrative Course The patient was told that I do not feel comfortable giving him what appears to be increasingly frequent shots of Dilaudid. I was going to try Toradol on him. The patient did not like this and so he walked out. Diagnosis Primary Impression: Chronic groin pain Additional Impression: Drug-seeking behavior Additional Instructions: Follow-up with your urologist. He can give you narcotic pain medications because he has control and follow-up with you. Disposition: 07 AGAINST MEDICAL ADVICE Condition: Stable Virgil Thibodeaux MD Aug 29, 2017 22:31
== END 2017-08-29 22:43 | disposition left against medical advice (07) ==
LOC: PHED 22:00
DX: N50.812 Left testicular pain (principal); G89.29 Other chronic pain; Z76.5 Malingerer [conscious simulation]
CPT/HCPCS: 99281

== ENCOUNTER → 2017-10-05 | Outpatient (CLI) | payer MEDICARE, BC ==
[~2017-10-05] MED LIST changes: -BACT800T5 PO; -DILA4TAB10 PO; -DOXY100C PO
[2017-10-05 13:50] LABS: BILIRUBIN, URINE NEG (NEG); BLOOD, URINE NEG (NEG); GLUCOSE,URINE NEG (NEG); KETONE, URINE NEG (NEG); MUCUS URINE FEW /lpf (OCC); NITRITE,URINE NEG (NEG); URINE COLOR YELLOW (YELLW/STRAW); URINE LEUKOCYTE ESTERASE NEG (NEG)
[2017-10-05 13:53] LABS: ALBUMIN 3.6 GM/DL (3.4-5.0); AST (GOT) 18 U/L (15-37); BICARBONATE 28.8 MEQ/L (21.0-32.0); BLOOD UREA NITROGEN 13 MG/DL (7-18); CALCIUM 9.4 MG/DL (8.5-10.1); CHLORIDE 106 MEQ/L (98-107); CREATININE 0.74 MG/DL (0.60-1.30); GLOMERULAR FILTRATION RATE 103 ML/MIN (>89); GLUCOSE,FASTING 72 MG/DL (74-99); SODIUM (NA) 141 MEQ/L (136-145)
[2017-10-05 13:54] LABS: ALT (GPT) 13 U/L (12-78); CHOLESTEROL 187 MG/DL (120-200)
[2017-10-05 14:04] LABS: ALKALINE PHOSPHATASE 60 U/L (45-117); CHOLESTEROL/ HDL RATIO 2.46 RATIO; HDL CHOLESTEROL 75.8 MG/DL (40.0-60.0); LDL CHOLESTEROL 98 MG/DL (0-99); TOTAL BILIRUBIN ADULT 1.1 MG/DL (0.2-1.0); TOTAL PROTEIN 6.3 GM/DL (6.4-8.2); TRIGLYCERIDES 66 MG/DL (42-150)
== END ==
LOC: PLAB 11:07
PROVIDERS: ATTEND Internal Medicine Endocrinology, Diabetes & Metabolism
DX: E27.40 Unspecified adrenocortical insufficiency (principal); M19.90 Unspecified osteoarthritis, unspecified site; R53.83 Other fatigue; E66.3 Overweight
CPT/HCPCS: 36415; 80053; 80061; 81001; 84443

== ENCOUNTER → 2018-02-23 | Outpatient (CLI) | payer MEDICARE, BC ==
[2018-02-23 13:49] LABS: AUTOMATED NEUTROPHIL # 6.7 TH/MM3 (1.8-7.7); BASOPHIL % 0.4 % (0.0-2.0); EOSINOPHIL # 0.2 TH/MM3 (0-0.4); EOSINOPHIL % 1.9 % (0.0-4.0); HEMATOCRIT 46.6 % (39.0-51.0); LYMPH % 12.5 % (9.0-44.0); LYMPHOCYTE # 1.1 TH/MM3 (1.0-4.8); MEAN CELL VOLUME 90.2 FL (80.0-100.0); MEAN CORPUSCULAR HGB CONC 34.3 % (32.0-36.0); MEAN PLATELET VOLUME 8.5 FL (7.0-11.0); MONO % 10.1 % (0.0-8.0); MONOCYTE # 0.9 TH/MM3 (0-0.9); NEUT % 75.1 % (16.0-70.0); PLATELET COUNT 165 TH/MM3 (150-450); RED BLOOD COUNT 5.16 MIL/MM3 (4.50-5.90); RED CELL DISTRIBUTION WIDTH 14.1 % (11.6-17.2); WHITE BLOOD COUNT 8.9 TH/MM3 (4.0-11.0)
[2018-02-23 14:15] LABS: AST (GOT) 22 U/L (15-37); BICARBONATE 26.8 MEQ/L (21.0-32.0); BLOOD UREA NITROGEN 15 MG/DL (7-18); CALCIUM 9.1 MG/DL (8.5-10.1); CHLORIDE 105 MEQ/L (98-107); CREATININE 0.88 MG/DL (0.60-1.30); GLOMERULAR FILTRATION RATE 84 ML/MIN (>89); GLUCOSE,FASTING 86 MG/DL (74-99); SODIUM (NA) 142 MEQ/L (136-145)
[2018-02-23 14:17] LABS: ALT (GPT) 19 U/L (12-78); CHOLESTEROL 205 MG/DL (120-200); TRIGLYCERIDES 81 MG/DL (42-150)
[2018-02-23 14:27] LABS: ALKALINE PHOSPHATASE 61 U/L (45-117); CHOLESTEROL/ HDL RATIO 3.16 RATIO; HDL CHOLESTEROL 64.8 MG/DL (40.0-60.0); LDL CHOLESTEROL 124 MG/DL (0-99); TOTAL BILIRUBIN ADULT 0.7 MG/DL (0.2-1.0); TOTAL PROTEIN 7.1 GM/DL (6.4-8.2)
== END ==
LOC: PLAB 09:27
DX: M19.90 Unspecified osteoarthritis, unspecified site (principal); E78.5 Hyperlipidemia, unspecified
CPT/HCPCS: 36415; 80053; 80061; 84443; 85025